=== PATIENT | male | born 1965 | race Caucasian/White ===

== ENCOUNTER 2017-05-20 08:19 | Day surgery (SDC) | payer OTHER ==
[~2017-05-20] VITALS: Ht 162.6 cm; Wt 63.0 kg
[2017-05-20 08:44] VITALS: BP 136/81
[2017-05-20] MEDS ORDERED: DOCU100C8 PO (08:48)
[2017-05-20] MEDS ORDERED: NO MEDICATIONS (09:40)
[2017-05-20] MEDS ORDERED: MIDAZOLAM 1 MG/ML, 5ML ONE (09:59)
[2017-05-20] MEDS ORDERED: FENTANYL PF 100 MCG/2ML ONE (09:59)
== END 2017-05-20 12:05 ==
LOC: OUT 08:19
PROVIDERS: ATTEND Surgery
DX: Z12.11 Encounter for screening for malignant neoplasm of colon (principal); K63.5 Polyp of colon; K57.30 Diverticulosis of large intestine without perforation or abscess without bleeding; Z98.890 Other specified postprocedural states; Z83.3 Family history of diabetes mellitus; Z82.49 Family history of ischemic heart disease and other diseases of the circulatory system
CPT/HCPCS: 45380; 88304; 99152; 99153; J2250; J3010